=== PATIENT | male | born 1990 | race Caucasian/White ===

== ENCOUNTER 2018-08-19 10:32 | Emergency (ER) | payer OTHER ==
[~2018-08-19] VITALS: Ht 172.7 cm; Wt 74.8 kg
[~2018-08-19 10:32] MED LIST: ACEBUTCAFT; ALPR1 PO; AMOX500 PO; AZIT250 PO; CEPH500 PO; CIPR250 PO; CITA20 PO; Cleocin HCl150 MG PO; DIPATR PO; ERYT.5TO OD; FORMULA TOP; HYDACE5 PO; HYDPAM50 PO; HYDR1TAB94 PO; IBUP600 PO; IBUP800 PO; LAVAP17G PO; LIDO2L MM; METR250 PO; NAPR500 PO; NYST237S MT; ONDA4ODT MM; OXYACE5T PO; PRED20 PO; PROACE100 PO; PROC10 PO; PROM25 PO; RXHYDACE PO; RXPROACE PO; Ultram50 MG PO; Valium5 MG PO; Vibramycin100 MG PO; [UNRECOGNIZED DRUG - REMARK]
[2018-08-19] MEDS ORDERED: NYST237S MT (11:16)
== END 2018-08-19 11:32 | disposition home or self-care (01) ==
LOC: ER 10:32
DX: K13.79 Other lesions of oral mucosa (principal); K03.81 Cracked tooth; F17.210 Nicotine dependence, cigarettes, uncomplicated; Z88.8 Allergy status to other drugs, medicaments and biological substances
CPT/HCPCS: 99282

== ENCOUNTER 2018-10-21 11:11 | Emergency (ER) | payer OTHER ==
[~2018-10-21] VITALS: Ht 172.7 cm; Wt 77.1 kg
[2018-10-21] MEDS ORDERED: METH10 PO (11:49)
== END 2018-10-21 14:12 | disposition home or self-care (01) ==
LOC: ER 11:11
DX: R79.9 Abnormal finding of blood chemistry, unspecified (principal); F11.20 Opioid dependence, uncomplicated
CPT/HCPCS: 36415; 80053; 80074; 82248; 83036; 85025; 86480; 86592; 87389; 99282

== ENCOUNTER 2019-09-05 20:47 | Emergency (ER) | payer OTHER ==
[~2019-09-05] VITALS: Ht 172.7 cm; Wt 83.9 kg
[~2019-09-05 20:47] MED LIST changes: +METH10 PO
[2019-09-05] MEDS ORDERED: MUPIROCIN1 GM TOP (21:46)
== END 2019-09-05 21:57 | disposition home or self-care (01) ==
LOC: ER 20:47
DX: N47.2 Paraphimosis (principal); N47.7 Other inflammatory diseases of prepuce; R10.9 Unspecified abdominal pain; G89.29 Other chronic pain; F17.210 Nicotine dependence, cigarettes, uncomplicated; Z88.8 Allergy status to other drugs, medicaments and biological substances; Z79.899 Other long term (current) drug therapy
CPT/HCPCS: 99282

== ENCOUNTER 2021-11-08 22:24 | Emergency (ER) | payer OTHER ==
[~2021-11-08] VITALS: Ht 172.7 cm; Wt 77.1 kg
[~2021-11-08 22:24] MED LIST changes: +Bactrim Ds Tab1 EACH PO; +MUPIROCIN1 GM TOP
[2021-11-08 23:24] LABS: Influenza A, PCR NEGATIVE (NEGATIVE); Influenza B, PCR NEGATIVE (NEGATIVE); Resp Syncytial Virus, PCR NEGATIVE (NEGATIVE)
[2021-11-08 23:26] LABS: SARS-Cov-2 (COVID-19) PCR, MMC POSITIVE (NEGATIVE)
== END 2021-11-08 23:29 | disposition home or self-care (01) ==
LOC: ER 22:24
PROVIDERS: Physician Assistant
DX: U07.1 COVID-19 (principal); F17.210 Nicotine dependence, cigarettes, uncomplicated; Z88.8 Allergy status to other drugs, medicaments and biological substances
CPT/HCPCS: 0241U

== ENCOUNTER 2022-01-21 21:33 | Emergency (ER) | payer OTHER ==
[~2022-01-21] VITALS: Ht 172.7 cm; Wt 74.8 kg
[2022-01-21 23:26] LABS: BASOPHILS ABSOLUTE AUTO 0.02 K/mm3 (0.00-0.23); BASOPHILS PERCENT AUTO 0 % (0-2); EOSINOPHILS ABSOLUTE AUTO 0.05 K/mm3 (0.00-0.68); EOSINOPHILS PERCENT AUTO 0 % (0-6); Hematocrit 38.4 % (37.0-53.0); Hemoglobin 13.2 g/dL (13.5-17.5); IMMATURE GRAN ABSOLUTE AUTO 0.07 K/mm3 (0.00-0.10); IMMATURE GRAN PERCENT AUTO 1 % (0-1); LYMPHOCYTES PERCENT AUTO 18 % (21-46); MONOCYTES PERCENT AUTO 8 % (4-13); Mean Corpuscular HGB 27.7 pg (26.0-34.0); Mean Corpuscular HGB Conc 34.4 g/dL (31.5-36.5); Mean Corpuscular Volume 81 fL (80-100); NEUTROPHILS ABSOLUTE AUTO 8.25 K/mm3 (1.96-9.15); NEUTROPHILS PERCENT AUTO 73 % (41-73); RDW Standard Deviation 41.1 fL (35.1-46.3); Red Blood Cell Count 4.77 M/mm3 (4.30-5.90); White Blood Cell Count 11.29 K/mm3 (4.00-11.30)
[2022-01-21 23:30] LABS: Mean Platelet Volume 10.1 fL (9.1-12.4); Platelet Count 200 K/mm3 (150-400)
[2022-01-21 23:38] LABS: Albumin, Blood 3.9 g/dL (3.4-5.0); Albumin/Globulin Ratio 1.1 (0.8-1.8); Bilirubin, Total 0.1 mg/dL (0.1-1.0); Calcium, Blood 8.7 mg/dL (8.5-10.1); Creatinine, Blood 0.69 mg/dL (0.60-1.20); Globulin, Blood 3.6 g/dL (2.2-4.0); Total Protein, Blood 7.5 g/dL (6.4-8.2)
[2022-01-22] MEDS ORDERED: SULTRIDS PO (01:26)
[2022-01-22] MEDS ORDERED: ONDA4ODT MM (01:27)
== END 2022-01-22 01:50 | disposition home or self-care (01) ==
LOC: ER 21:33
PROVIDERS: Student in an Organized Health Care Education/Training Program
DX: L03.115 Cellulitis of right lower limb (principal); S81.801A Unspecified open wound, right lower leg, initial encounter; W22.8XXA Striking against or struck by other objects, initial encounter; Z88.8 Allergy status to other drugs, medicaments and biological substances; F17.210 Nicotine dependence, cigarettes, uncomplicated
CPT/HCPCS: 73590; 80053; 83605; 85025; 87040; 99284-25; A9270; J1885; J7030

== ENCOUNTER 2024-10-26 03:28 | Emergency (ER) | payer OTHER ==
[~2024-10-26] VITALS: Ht 172.7 cm; Wt 79.4 kg
[~2024-10-26 03:28] MED LIST changes: +Flomax0.4 MG PO; +SULTRIDS PO
[2024-10-26] MEDS ORDERED: Veetids 500500 MG PO (03:40)
[2024-10-26] MEDS ORDERED: IBU600 MG PO (03:40)
[2024-10-26 03:41] VITALS: BP 134/92
== END 2024-10-26 03:53 | disposition home or self-care (01) ==
LOC: ER 03:28
DX: K04.7 Periapical abscess without sinus (principal); F17.210 Nicotine dependence, cigarettes, uncomplicated; Z88.8 Allergy status to other drugs, medicaments and biological substances; Z79.899 Other long term (current) drug therapy
CPT/HCPCS: 99282; A9270